=== PATIENT | male | born 1980 | race Caucasian/White ===

== ENCOUNTER 2016-11-17 11:22 | Emergency (ER) | payer SELFPAY ==
[~2016-11-17 11:22] MED LIST: ALBUTEROL17 GM INH; AMOXICILLIN875 MG PO; CIPRO500 M2 PO; CULTURELLE1 CA1 PO; DORYX100 MG PO; DOXYCYCLINE HY100 MG PO; GLUCAGON EMERGEN1 MG IM; GLUCAGON IN1 MG/1 ML IM; GLUCAGON1 MG/KIT IJ; HUMALOG100 U/ML SC; HUMALOG100 U/ML SQ; INSULIN; INSULIN NOVALOG; LANTUS100 U/ML SC; LANTUS100 UNITS/ SC; LISINOPRIL10 MG PO; LISINOPRIL20 MG PO; LORTAB 5-500 T1 EAC1 PO; LORTAB 5-500 T1 EACH PO; NICOTINE1 EAC1 TD; NOVOLOG100 U/M SQ; NOVOLOG100 UNIT/1 SQ; PROMETHAZINE25 MG PO; REGLAN5 M1 PO; REGLAN5 MG PO; RISPERDAL0.25 M1 PO; SENOKOT-S (SENN1 TA1 PO; SINEQUAN10 MG PO; TYLENOL325 M1 PO; TYLENOL325 MG PO; ZESTRIL5 M1 PO; ZESTRIL5 MG PO; ZOFRAN ODT4 MG/UDTAB PO; ZOFRAN4 M1 PO
== END 2016-11-17 13:45 | disposition left against medical advice (07) ==
LOC: EDMED 11:22
DX: S90.454A Superficial foreign body, right lesser toe(s), initial encounter (principal); Z53.29 Procedure and treatment not carried out because of patient's decision for other reasons; X58.XXXA Exposure to other specified factors, initial encounter